=== PATIENT | female | born 1985 | race Two or more races ===

== ENCOUNTER → 2020-11-29 | Outpatient (CLI) | payer OTHER ==
[~2020-11-29] MED LIST: PRENA1 TRUE CO1 EACH PO
== END | disposition home or self-care (01) ==
LOC: PRENATAL 15:26
PROVIDERS: ATTEND Obstetrics & Gynecology Maternal & Fetal Medicine
DX: O35.0XX1 Maternal care for (suspected) central nervous system malformation in fetus, fetus 1 (principal); O35.3XX1 Maternal care for (suspected) damage to fetus from viral disease in mother, fetus 1; O98.512 Other viral diseases complicating pregnancy, second trimester; Z36.89 Encounter for other specified antenatal screening; Z3A.25 25 weeks gestation of pregnancy

== ENCOUNTER 2021-01-19 14:30 | Inpatient (IN) | payer OTHER ==
[~2021-01-19] VITALS: Ht 165.1 cm; Wt 100.7 kg
[2021-01-19] MEDS ORDERED: PRENA1 TRUE CO1 EACH PO (15:26)
[2021-01-23] MEDS ORDERED: PROBIOTIC & AC1 EACH PO (07:00)
[2021-01-23] MEDS ORDERED: METRONIDAZOLE500 MG PO (07:00)
== END 2021-01-23 09:30 | disposition home or self-care (01) | DRG 833 ==
LOC: ER 14:30 → OB/GYN 01-20 12:22
PROVIDERS: ADMIT Obstetrics & Gynecology; ATTEND Obstetrics & Gynecology
DX: O99.613 Diseases of the digestive system complicating pregnancy, third trimester (principal); K52.89 Other specified noninfective gastroenteritis and colitis; O99.283 Endocrine, nutritional and metabolic diseases complicating pregnancy, third trimester; E86.0 Dehydration; R19.7 Diarrhea, unspecified; Z3A.31 31 weeks gestation of pregnancy; Z20.822 Contact with and (suspected) exposure to COVID-19

== ENCOUNTER 2021-02-25 08:37 | Outpatient (CLI) | payer OTHER ==
[~2021-02-25 08:37] MED LIST changes: +METRONIDAZOLE500 MG PO; +PROBIOTIC & AC1 EACH PO
== END 2021-02-25 10:25 | disposition home or self-care (01) ==
LOC: PRENATAL 08:37
PROVIDERS: ATTEND Obstetrics & Gynecology Maternal & Fetal Medicine
DX: O26.843 Uterine size-date discrepancy, third trimester (principal); O36.8131 Decreased fetal movements, third trimester, fetus 1; O36.63X1 Maternal care for excessive fetal growth, third trimester, fetus 1; O35.0XX1 Maternal care for (suspected) central nervous system malformation in fetus, fetus 1; Z36.89 Encounter for other specified antenatal screening; Z3A.36 36 weeks gestation of pregnancy

== ENCOUNTER 2021-03-17 17:26 | Outpatient (CLI) | payer OTHER ==
[2021-03-17] MEDS ORDERED: PRENATAL TABLE1 EAC1 PO (17:29)
[2021-03-17] MEDS ORDERED: FOLIC ACID20 MG PO (17:30)
== END 2021-03-18 10:48 | disposition home or self-care (01) ==
LOC: OBS/DEL 17:26
PROVIDERS: ATTEND Obstetrics & Gynecology
DX: O47.1 False labor at or after 37 completed weeks of gestation (principal); Z3A.39 39 weeks gestation of pregnancy

== ENCOUNTER 2021-03-19 02:08 | Inpatient (IN) | payer OTHER ==
[~2021-03-19] VITALS: Ht 165.1 cm; Wt 3.6 kg
[~2021-03-19 02:08] MED LIST changes: +FOLIC ACID20 MG PO; +PRENATAL TABLE1 EAC1 PO
== END 2021-03-22 13:00 | disposition home or self-care (01) | DRG 787 ==
LOC: OBS/DEL 02:08 → O/R 06:38 → LDR 06:38 → OB/GYN 06:38 → O/R 13:35 → OB/GYN 14:14
PROVIDERS: ADMIT Obstetrics & Gynecology; ATTEND Obstetrics & Gynecology
PROC: 10907ZC Drainage of Amniotic Fluid, Therapeutic from Products of Conception, Via Natural or Artificial Opening (ICD-10-PCS; 2021-03-19)
PROC: 4A1HXFZ Monitoring of Products of Conception, Cardiac Rhythm, External Approach (ICD-10-PCS; 2021-03-19)
PROC: 10D00Z1 Extraction of Products of Conception, Low, Open Approach (ICD-10-PCS; principal; 2021-03-19 11:30)
DX: O62.1 Secondary uterine inertia (principal); O98.82 Other maternal infectious and parasitic diseases complicating childbirth; Z37.0 Single live birth; Z3A.39 39 weeks gestation of pregnancy

== ENCOUNTER 2022-03-04 17:03 | Inpatient (IN) | payer OTHER ==
[~2022-03-04] VITALS: Ht 165.1 cm; Wt 99.8 kg
== END 2022-03-10 12:39 | disposition home or self-care (01) | DRG 831 ==
LOC: OBS/DEL 17:03 → LDR 03-05 06:47 → OB/GYN 03-05 06:47
PROVIDERS: ADMIT Obstetrics & Gynecology; ATTEND Obstetrics & Gynecology
PROC: 4A1HXCZ Monitoring of Products of Conception, Cardiac Rate, External Approach (ICD-10-PCS; principal; 2022-03-05)
PROC: 8E0ZXY6 Isolation (ICD-10-PCS; 2022-03-05)
PROC: XW033H6 Introduction of Other New Technology Monoclonal Antibody into Peripheral Vein, Percutaneous Approach, New Technology Group 6 (ICD-10-PCS; 2022-03-05)
DX: O98.512 Other viral diseases complicating pregnancy, second trimester (principal); U07.1 COVID-19; O26.892 Other specified pregnancy related conditions, second trimester; Z3A.22 22 weeks gestation of pregnancy; J10.1 Influenza due to other identified influenza virus with other respiratory manifestations

== ENCOUNTER 2022-06-16 07:19 | Outpatient (CLI) | payer OTHER | END 2022-06-16 11:59 | disposition home or self-care (01) | LOC: NST 07:19 | PROVIDERS: ATTEND Obstetrics & Gynecology | DX: Z34.83 Encounter for supervision of other normal pregnancy, third trimester (principal) ==

== ENCOUNTER 2022-06-30 06:44 | Inpatient (IN) | payer OTHER ==
[~2022-06-30] VITALS: Ht 165.1 cm; Wt 3.6 kg
[2022-06-30] MEDS ORDERED: PRENATAL CAPLE1 EAC1 PO (10:56)
[2022-06-30] MEDS ORDERED: FOLIC ACID20 MG PO (10:56)
== END 2022-07-03 15:55 | DRG 788 ==
LOC: LDR 06:44 → OB/GYN 06:44 → O/R 13:57 → OB/GYN 14:09
PROVIDERS: ADMIT Obstetrics & Gynecology; ATTEND Obstetrics & Gynecology
PROC: 4A1HXCZ Monitoring of Products of Conception, Cardiac Rate, External Approach (ICD-10-PCS; 2022-06-30)
PROC: 10D00Z1 Extraction of Products of Conception, Low, Open Approach (ICD-10-PCS; principal; 2022-06-30 11:45)
DX: O34.211 Maternal care for low transverse scar from previous cesarean delivery (principal); Z3A.39 39 weeks gestation of pregnancy; Z37.0 Single live birth; Z20.822 Contact with and (suspected) exposure to COVID-19